=== PATIENT | male | born 1980 | race American Indian/Alaskan Native ===

== ENCOUNTER 2016-10-30 12:26 | Emergency (ER) | payer SELFPAY ==
--- NOTE | 2016-10-30 13:04 | Emergency Department Report ---
Chief Complaint: Chest Pain Stated Complaint: CHEST PAIN Time Seen by Provider: 10/30/16 12:59 - HPI History of Present Illness: 36 y/o male complain of chest pain x 2 days with episode of n/v x 2 days .pt state overt the counter medication without any relief today .no prior injury . pt complain of abdominal pain with diarrhea. - ROS Review of Systems: per HPI - Exam Vital Signs: Vital Signs 10/30/16 12:42 Temperature 99 F Pulse Rate 70 Respiratory 20 Rate Blood Pressure 133/83 O2 Sat by Pulse 100 Oximetry Physical Exam: GENERAL: The patient is well-developed and well-nourished. Patient is in NAD. HENT: Normocephalic. Atraumatic. Patient has moist mucous membranes. Throat: No erythema, swelling or exudates. EYES: Extraocular motions are intact, PERRL NECK: Supple. No meningitic signs are noted. There is no adenopathy noted. CHEST/LUNGS: Clear to auscultation bilaterally. No wheezing, rales or rhonchi noted. There is no respiratory distress noted. HEART/CARDIOVASCULAR: Regular rate and rhythm. Normal S1 S2. No murmurs, rubs , clicks, or gallops. ABDOMEN: Abdomen is soft, nontender.. Bowel sounds normoactive. There is no abdominal distention. Negative rebound tenderness. : Deferred. SKIN: There is no rash. There is no edema. There is no diaphoresis. NEURO: The patient is A&Ox3. The patient has no focal neurologic deficits. MUSCULOSKELETAL: There is no tenderness or deformity. There is no limitation range of motion. PSYCH: Pt has appropriate mood and affect. MSE screening note: Focused history and physical exam performed. Due to findings the following was ordered: ED Disposition for MSE Condition: Stable
[2016-10-30 13:41] LABS: Basophils % (Auto) 0.4 % (0.0-1.8); Hematocrit 41.7 % (35.5-45.6); Mean Corpuscular HGB Conc 34 % (32-34); Mean Corpuscular Hemoglobin 33 pg (28-32); Mean Corpuscular Volume 97 fl (84-94); Platelet Count 186 K/mm3 (140-440); Red Blood Count 4.31 M/mm3 (3.65-5.03); Red Cell Distribution Width 13.6 % (13.2-15.2); White Blood Count 10.5 K/mm3 (4.5-11.0)
[2016-10-30 13:50] LABS: INR 0.95 (0.87-1.13)
[2016-10-30 13:51] LABS: Partial Thromboplastin Time 28.3 Sec. (24.2-36.6)
[2016-10-30 13:58] LABS: Blood Urea Nitrogen 7 mg/dL (9-20); Calcium 8.7 mg/dL (8.4-10.2); Carbon Dioxide 29 mmol/L (22-30); Chloride 102.4 mmol/L (98-107); Creatine Kinase 69 units/L (55-170); Glucose 91 mg/dL (75-100); Sodium 141 mmol/L (137-145)
[2016-10-30 14:01] LABS: Creatine Kinase MB < 1.0 ng/mL (0.0-4.0)
[2016-10-30 14:02] LABS: Anion Gap 14 mmol/L
[2016-10-30 16:14] LABS: Bilirubin,Urine NEG (Negative); Blood,Urine NEG (Negative); Ketones,Urine NEG (Negative); Leukocyte Esterase,Urine TR (Negative); Mucus,Urine FEW /HPF; Nitrite,Urine NEG (Negative); Protein,Urine <15 mg/dL mg/dL (Negative)
--- NOTE | 2016-10-31 07:18 | Emergency Department Report ---
HPI - General Chief Complaint: Chest Pain Time Seen by Provider: 10/31/16 06:55 - HPI HPI: Room 26 The patient is a 36-year-old male presenting with a chief complaint of chest pain and abdominal pain. The patient states his symptoms began 5 days ago with nausea vomiting and diarrhea. Patient states she had lower abdominal cramping. 3 days ago symptoms began to improve however he develop intermittent left- sided chest tightness associated shortness of breath and diaphoresis. The patient states that time he has numbness in his left upper extremity. The patient currently complains of pain in the left chest and gives a score of 3/ 10. Patient denies ever having had a stress test or cardiac catheterization. Patient denies any history of sick contacts Location: [see above] Duration: [see above] Quality: Tightness, cramping Severity: 3/10 Modifying factors: [see above] Context: [see above] Mode of transportation: [not driving] ED Past Medical Hx - Past Medical History Previous Medical History?: Yes Hx Seizures: Yes Additional medical history: "fluid in chest' - Surgical History Past Surgical History?: Yes - Family History Family history: CAD/CO (mother had a history of CO in her 30s) - Social History Smoking Status: Current Every Day Smoker (one pack per day) Substance Use Type: None (denies illicit drug use), Alcohol (occasional) - Medications Home Medications: Home Medications Medication Instructions Recorded Confirmed Last Taken Type No Known Home Medications [No 10/30/16 10/30/16 Unknown History Reported Home Medications] ED Review of Systems ROS: Stated complaint: CHEST PAIN Other details as noted in HPI Comment: All other systems reviewed and negative Constitutional: diaphoresis, fever (subjective) Eyes: denies: eye pain, eye discharge, vision change ENT: denies: ear pain, throat pain Respiratory: shortness of breath Cardiovascular: chest pain Endocrine: no symptoms reported Gastrointestinal: nausea, vomiting, diarrhea Genitourinary: denies: urgency, dysuria Musculoskeletal: denies: back pain, joint swelling, arthralgia Skin: denies: rash, lesions Neurological: denies: headache, weakness, paresthesias Psychiatric: denies: anxiety, depression Hematological/Lymphatic: denies: easy bleeding, easy bruising Physical Exam - Physical Exam Vital Signs: Vital Signs 10/30/16 10/30/16 10/31/16 12:42 23:38 06:13 Temperature 99 F 98.2 F 97.5 F L Pulse Rate 70 50 L 64 Respiratory 20 18 18 Rate Blood Pressure 133/83 125/85 117/83 O2 Sat by Pulse 100 100 100 Oximetry Physical Exam: GENERAL: The patient is well-developed well-nourished male sitting on stretcher not appearing to be in acute distress. [] HEENT: Normocephalic. Atraumatic. Extraocular motions are intact. Patient has moist mucous membranes. NECK: Supple. Trachea midline CHEST/LUNGS: Clear to auscultation. There is no respiratory distress noted. HEART/CARDIOVASCULAR: Regular. There is no tachycardia. There is no gallop rub or murmur. ABDOMEN: Abdomen is soft, with mild discomfort to palpation in the right lower quadrant, suprapubic and left lower quadrants. There is no rebound or guarding. Patient has normal bowel sounds. There is no abdominal distention. SKIN: There is no rash. There is no edema. There is no diaphoresis. NEURO: The patient is awake, alert, and oriented. The patient is cooperative. The patient has normal speech MUSCULOSKELETAL: There is no evidence of acute injury. ED Course Vital Signs 10/30/16 10/30/16 10/31/16 12:42 23:38 06:13 Temperature 99 F 98.2 F 97.5 F L Pulse Rate 70 50 L 64 Respiratory 20 18 18 Rate Blood Pressure 133/83 125/85 117/83 O2 Sat by Pulse 100 100 100 Oximetry ED Medical Decision Making - Lab Data Result diagrams: 10/30/16 13:27 10/30/16 13:27 Laboratory Tests 10/30/16 10/30/16 10/30/16 13:27 13:27 13:27 WBC 10.5 RBC 4.31 Hgb 14.0 Hct 41.7 MCV 97 H MCH 33 H MCHC 34 RDW 13.6 Plt Count 186 Lymph % (Auto) 16.1 Crowley % (Auto) 7.1 Eos % (Auto) 2.0 Baso % (Auto) 0.4 Lymph # 1.7 Crowley # 0.7 Eos # 0.2 Baso # 0.0 Seg Neutrophils % 74.4 H Seg Neutrophils # 7.8 H PT 12.6 INR 0.95 APTT 28.3 Sodium 141 Potassium 4.0 Chloride 102.4 Carbon Dioxide 29 Anion Gap 14 BUN 7 L Creatinine 1.0 Estimated GFR > 60 BUN/Creatinine Ratio 7.00 Glucose 91 Calcium 8.7 Total Creatine Kinase 69 CK-MB (CK-2) < 1.0 CK-MB (CK-2) Rel Index 1.4 Troponin T < 0.010 Urine Color Urine Turbidity Urine pH Ur Specific Mobile Urine Protein Urine Glucose (UA) Urine Ketones Urine Blood Urine Nitrite Urine Bilirubin Urine Urobilinogen Ur Leukocyte Esterase Urine WBC (Auto) Urine RBC (Auto) U Epithel Cells (Auto) Urine Mucus 10/30/16 10/31/16 15:26 07:12 WBC RBC Hgb Hct MCV MCH MCHC RDW Plt Count Lymph % (Auto) Crowley % (Auto) Eos % (Auto) Baso % (Auto) Lymph # Crowley # Eos # Baso # Seg Neutrophils % Seg Neutrophils # PT INR APTT Sodium Potassium Chloride Carbon Dioxide Anion Gap BUN Creatinine Estimated GFR BUN/Creatinine Ratio Glucose Calcium Total Creatine Kinase 129 CK-MB (CK-2) < 1.0 CK-MB (CK-2) Rel Index 0.7 Troponin T < 0.010 Urine Color Yellow Urine Turbidity Clear Urine pH 7.0 Ur Specific Mobile 1.016 Urine Protein <15 mg/dl Urine Glucose (UA) Neg Urine Ketones Neg Urine Blood Neg Urine Nitrite Neg Urine Bilirubin Neg Urine Urobilinogen 2.0 Ur Leukocyte Esterase Tr Urine WBC (Auto) 11.0 H Urine RBC (Auto) 2.0 U Epithel Cells (Auto) < 1.0 Urine Mucus Few - EKG Data -: EKG Interpreted by Ks EKG shows normal: sinus rhythm Rate: normal - EKG Data When compared to previous EKG there are: previous EKG unavailable Interpretation: nonspecific ST-T wave karen (T-wave inversion in lead 3.) - Radiology Data Radiology results: report reviewed (chest x-ray), image reviewed (chest x-ray) Chest x-ray-no focal infiltrates, no pneumothorax - Medical Decision Making Given patient's family history of a mother with CO in her 30s, his one pack per day smoking habit and history of intermittent chest pain that has never been evaluated by stress test or cardiac catheterization, I recommended admission to the hospital for further evaluation. Patient verbalized understanding states that he is currently uninsured and does not wish to stay in the hospital. Patient verbalized understanding of increased morbidity and/or mortality should he leave the hospital AGAINST MEDICAL ADVICE - Differential Diagnosis ACS, pericarditis, pleural effusion, gastroenteritis Critical care attestation.: If time is entered above; I have spent that time in minutes in the direct care of this critically ill patient, excluding procedure time. ED Disposition Clinical Impression: Chest pain, Abdominal pain Disposition: LEFT AGAINST MEDICAL ADVICE Is pt being admited?: No Does the pt Need Aspirin: Yes Condition: Undetermined Instructions: Chest Pain (ED) Referrals: PRIMARY CARE,MD [Primary Care Provider] - 3-5 Days Time of Disposition: 08:08 (leaving AMA)
--- NOTE | 2016-10-31 07:36 | XRay Report ---
CHEST 2 VIEWS INDICATION: Chest pain. COMPARISON: None similar at this institution. FINDINGS: PA and lateral chest radiographs demonstrate normal cardiomediastinal silhouette. Clear, well-expanded lungs. Thoracic spine straightening and slight lower thoracic wedging. CONCLUSION: No acute disease in the chest. Thank you for the opportunity to participate in this patient's care.
[2016-10-31 07:40] LABS: Creatine Kinase 129 units/L (55-170); Creatine Kinase MB < 1.0 ng/mL (0.0-4.0)
[2016-10-31 07:52] VITALS: BP 118/83
== END 2016-10-31 08:19 | disposition left against medical advice (07) ==
LOC: ED 12:26
DX: R07.89 Other chest pain (principal); R11.2 Nausea with vomiting, unspecified; R10.31 Right lower quadrant pain; R10.32 Left lower quadrant pain; R56.9 Unspecified convulsions; F17.200 Nicotine dependence, unspecified, uncomplicated
CPT/HCPCS: 36415; 71020; 80048; 81001; 82550; 82553; 84484; 85025; 85610; 85730; 93005; 93010